=== PATIENT | male | born 1975 | race Caucasian/White ===

== ENCOUNTER 2016-11-19 12:59 | Emergency (ER) | payer OTHER ==
--- NOTE | ~2016-11-19 | CR170 ---
[facility] A Service of [facility] RADIOLOGY TEXT RESULTS PATIENT: BHAVNA ROYAL LOCATION: [place] : [birth year] UNIT #: [id number] AGE: [address]: Merlene Funez APRN SEX: M ORDER DR: [id number] [facility] [address] [place], [place] [address] [id number] MR#: [id number] Acc #: [id number] NAME: BHAVNA ROYAL : 1975 SEX: M STUDY DATE/TIME: 11/19/2016 UNIT: CFTX ROOM: STUDY DESCRIPTION: CR Knee 2 Views Rt Attending Physician: Merlene Funez A.P.R.N. Ordering Physician: Ed Gurdeep Snider M.D. Primary Care Physician: Anne Will MEDICAL IMAGING REPORT This report is preliminary unless electronic signature is present EXAM Right knee, 2 views, 11/19/2016, 1211 hours. HISTORY Patient suffered twisting injury with fall 3 weeks ago and heard a pop in knee. Persistent knee pain. COMPARISON STUDIES None FINDINGS AP and cross-table lateral views demonstrate no definite knee joint effusion or fracture. There is soft tissue swelling and edema superficial to the patella and the inferior patellar tendon. There is no fracture or loose body. IMPRESSION No knee joint effusion or fracture. There is soft tissue swelling in the anterior pretibial area and superficial to the infrapatellar tendon. No loose body seen. Dictated by... Josi Turner M.D. THIS IS AN ELECTRONICALLY VERIFIED REPORT Josi Turner M.D. at 11/20/2016 9:25 AM Mildred TD: 11/19/2016 18:46 JOB #: [id number] [facility] A Service of [facility] RADIOLOGY TEXT RESULTS PATIENT: BHAVNA ROYAL LOCATION: [facility] : [birth year] UNIT #: [id number] AGE: [address]: Merlene Funez APRN SEX: M ORDER DR: MEDICAL IMAGING REPORT COPY
[~2016-11-19 12:59] MED LIST: FISH OIL 1,2001 EAC2 PO; MULTI-VITAMIN1 EAC1 PO; NO MEDICATIONS; NORCO1 TAB 10/3 PO
== END 2016-11-19 13:48 | disposition home or self-care (01) ==
LOC: CFTX 12:59
DX: S83.91XA Sprain of unspecified site of right knee, initial encounter (principal); X50.1XXA Overexertion from prolonged static or awkward postures, initial encounter; Y92.69 Other specified industrial and construction area as the place of occurrence of the external cause; Y99.0 Civilian activity done for income or pay
CPT/HCPCS: 29505; 73560; 99283